=== PATIENT | male | born 1985 | race Caucasian/White ===

== ENCOUNTER 2017-02-03 13:47 | Emergency (ER) | payer OTHER ==
[~2017-02-03] VITALS: Ht 190.5 cm; Wt 105.0 kg
[2017-02-03 13:50] VITALS: BP 145/95; PULSE 69; RESP 16; TEMP 98; O2SAT 100
[2017-02-03] MEDS ORDERED: HYDROmorphone HCL PF 1 MG/ML VIAL IVS ONE (14:15)
[2017-02-03] MEDS ORDERED: SODIUM CHLORIDE 0.9% FLUSH 10 ML FLUSH IVF PRN (14:15)
[2017-02-03] MEDS ORDERED: SODIUM CHLOR 0.9% 1000 ML INJ 1,000 ML IV ONE (14:15)
[2017-02-03] MEDS ORDERED: ONDANSETRON HCL 4 MG/2 ML VIAL IVP ONE (14:15)
--- NOTE | 2017-02-03 14:15 | PD ---
HPI Chief Complaint: Flank/Kidney Pain Time Seen by Provider: 13:56 Travel History International Travel<30 days: No Contact w/Intl Traveler<30days: No Traveled to known affect area: No History of Present Illness HPI This patient complains of the abrupt onset of left flank pain. Duration 4 hours. Severity is severe. No injury. No fever. he has nausea. No alleviating factors. No radiation of pain. He is not having abdominal pain. PFSH Past Medical History Cancer: No Cardiovascular Problems: No Diminished Hearing: No Endocrine: No Genitourinary: No Immune Disorder: No Medical other: Yes (ENLARGED RIGHT GROIN LYMPHE NODES) Musculoskeletal: No Neurologic: No Psychiatric: No Reproductive: No Respiratory: No Tetanus Vaccination: < 5 Years Influenza Vaccination: Yes Past Surgical History Abdominal Surgery: Yes (APPI) Appendectomy: Yes ( A CHILD) Other Surgery: Yes Social History Alcohol Use: Yes (3 BEER PER WEEK) Tobacco Use: No Substance Use: No Allergies-Medications (Allergen,Severity, Reaction): Coded Allergies: Aspirin (Verified Allergy, Severe, OTHER, 02/03/17) Ceftin (Verified Allergy, Severe, Anaphylaxis, 02/03/17) Reported Meds & Prescriptions Reported Meds & Active Scripts Active No Active Prescriptions or Reported Medications Review of Systems General / Constitutional: No: Fever Eyes: No: Visual changes HENT: No: Headaches Cardiovascular: No: Chest Pain or Discomfort Respiratory: No: Shortness of Breath Gastrointestinal: Positive: Nausea, No: Abdominal Pain Genitourinary: Positive: Flank Pain, No: Dysuria Musculoskeletal: No: Pain Skin: No Rash Neurologic: No: Weakness Psychiatric: No: Depression Endocrine: No: Polydipsia Hematologic/Lymphatic: No: Easy Bruising Physical Exam Narrative GENERAL: Well-nourished, well-developed patient with left flank pain. SKIN: Focused skin assessment reveals no rash and nodules. Skin is Warm and dry. HEAD: Atraumatic. Normocephalic. EYES: Pupils equal and round. No scleral icterus. No injection or drainage. ENT: No nasal bleeding or discharge. Mucous membranes pink and moist. NECK: Trachea midline. No JVD. CARDIOVASCULAR: Regular rate and rhythm. No murmur appreciated. RESPIRATORY: No accessory muscle use. Clear to auscultation. Breath sounds equal bilaterally. GASTROINTESTINAL: Abdomen soft, non-tender, nondistended. Hepatic and splenic margins not palpable. Has palpable lymphadenopathy in the right groin shows chronic per patient over 3 weeks MUSCULOSKELETAL: No obvious deformities. No clubbing. No cyanosis. No edema. No midline tenderness NEUROLOGICAL: Awake and alert. No obvious cranial nerve deficits. Motor grossly within normal limits. Normal speech. PSYCHIATRIC: Appropriate mood and affect; insight and judgment normal. Data Data Last Documented VS Vital Signs Date Time Temp Pulse Resp B/P Pulse Ox O2 Delivery O2 Flow Rate FiO2 02/03/17 13:50 98.0 69 16 145/95 100 Orders Urinalysis - C+S If Indicated (02/03/17 13:49) Complete Blood Count With Diff (02/03/17 14:04) Basic Metabolic Panel (Bmp) (02/03/17 14:04) Iv Access Insert/Monitor (02/03/17 14:04) Ondansetron Inj (Zofran Inj) (02/03/17 14:15) Sodium Chloride 0.9% Flush (Ns Flush) (02/03/17 14:15) Hydromorphone Pf Inj (Dilaudid Pf Inj) (02/03/17 14:15) Sodium Chlor 0.9% 1000 Ml Inj (Ns 1000 M (02/03/17 14:15) Ct Abd/Pel W/O Iv Contrast (02/03/17 ) Labs Laboratory Tests Test 02/03/17 02/03/17 12:40 15:00 White Blood Count 10.6 TH/MM3 Red Blood Count 5.10 MIL/MM3 Hemoglobin 14.2 GM/DL Hematocrit 42.3 % Mean Corpuscular Volume 83.0 FL Mean Corpuscular Hemoglobin 27.8 PG Mean Corpuscular Hemoglobin 33.5 % Concent Red Cell Distribution Width 11.9 % Platelet Count 338 TH/MM3 Mean Platelet Volume 9.5 FL Neutrophils (%) (Auto) 74.0 % Lymphocytes (%) (Auto) 18.9 % Monocytes (%) (Auto) 5.9 % Eosinophils (%) (Auto) 0.4 % Basophils (%) (Auto) 0.8 % Neutrophils # (Auto) 7.9 TH/MM3 Lymphocytes # (Auto) 2.0 TH/MM3 Monocytes # (Auto) 0.6 TH/MM3 Eosinophils # (Auto) 0.0 TH/MM3 Basophils # (Auto) 0.1 TH/MM3 CBC Comment DIFF FINAL Differential Comment Sodium Level 142 MEQ/L Potassium Level 3.8 MEQ/L Chloride Level 104 MEQ/L Carbon Dioxide Level 29.1 MEQ/L Anion Gap 9 MEQ/L Blood Urea Nitrogen 10 MG/DL Creatinine 1.00 MG/DL Estimat Glomerular Filtration 87 ML/MIN Rate Random Glucose 109 MG/DL Calcium Level 9.7 MG/DL Urine Collection Type CLEAN CATCH Urine Color MIR Urine Turbidity MOD Urine pH 8.5 Urine Specific [place] 1.023 Urine Protein TRACE mg/dL Urine Glucose (UA) NEG mg/dL Urine Ketones 15 mg/dL Urine Occult Blood LARGE Urine Nitrite NEG Urine Bilirubin NEG Urine Leukocyte Esterase NEG Urine RBC INNUM /hpf Urine WBC /hpf Urine Squamous Epithelial 0-5 /hpf Cells Urine Amorphous Sediment MOD Microscopic Urinalysis Comment CULT NOT INDICATED Urine Collection Time 1500 MDM Medical Decision Making Medical Screen Exam Complete: Yes Emergency Medical Condition: Yes Medical Record Reviewed: Yes Differential Diagnosis Kidney stone, sciatica, pyelonephritis Narrative Course I have reviewed the patient's electronic medical record. IV placed CBC is normal Metabolic profile is normal Urinalysis shows blood without infection CT of abdomen and pelvis shows some mild left hydronephrosis but no visible stone. Incidental findings discussed with patient including gallstone and bone lesion on the femur I gave him IV Dilaudid and IV Zofran and 1 L normal saline IV bolus On recheck he is completely asymptomatic and feels fine. He says that he urinated right before the CT scan and believes he saw a stone pass Presentation would be consistent with a recently passed stone Recommending urology follow-up He feels fine and does not want any medications He should discuss his incidental findings with his PMD Diagnosis Primary Impression: Kidney stone on left side Additional Instructions: The patient was advised to follow up with their physician and return if they worsen. Follow up with urologist Med/Other Pt SpecificInfo: Other Scripts No Active Prescriptions or Reported Meds Disposition: 01 DISCHARGE HOME Condition: Stable Freedom Cortez MD Feb 03, 2017 14:15
[2017-02-03 14:30] LABS: AUTOMATED NEUTROPHIL # 7.9 TH/MM3 (1.8-7.7); BASOPHIL # 0.1 TH/MM3 (0-0.2); BASOPHIL % 0.8 % (0.0-2.0); EOSINOPHIL % 0.4 % (0.0-4.0); HEMATOCRIT 42.3 % (39.0-51.0); HEMO FLAGS DIFF FINAL; LYMPH % 18.9 % (9.0-44.0); MEAN CORPUSCULAR HEMOGLOBIN 27.8 PG (27.0-34.0); MEAN CORPUSCULAR HGB CONC 33.5 % (32.0-36.0); MONO % 5.9 % (0.0-8.0); PLATELET COUNT 338 TH/MM3 (150-450); RED CELL DISTRIBUTION WIDTH 11.9 % (11.6-17.2); WHITE BLOOD COUNT 10.6 TH/MM3 (4.0-11.0)
--- NOTE | 2017-02-03 14:44 | RADHPO ---
EXAM DATE/TIME: 02/03/2017 14:12 [facility] COMPARISON: No previous studies available for comparison. INDICATIONS : Left flank pain. Evaluate for renal stone. ORAL CONTRAST: No oral contrast ingested. RADIATION DOSE: 24.52 CTDIvol (mGy) MEDICAL HISTORY : None SURGICAL HISTORY : Appendectomy. ENCOUNTER: Initial ACUITY: 1 day PAIN SCALE: 5/10 LOCATION: Left flank TECHNIQUE: Volumetric scanning of the abdomen and pelvis was performed. Using automated exposure control and ad justment of the mA and/or kV according to patient size, radiation dose was kept as low as reasonably achievable to obtain optimal diagnostic quality images. FINDINGS: LOWER LUNGS: The visualized lower lungs are clear. LIVER: Homogeneous density without lesion. There is no dilation of the biliary tree. There is a 26 x 36 mm rim calcified gallstone of the gallbladder fundus. SPLEEN: Normal size without lesion. PANCREAS: Within normal limits. KIDNEYS: There is mild left hydronephrosis and diffuse mild hydroureter. No radiopaque stone seen. I also don' t see a calculus in the bladder. ADRENAL GLANDS: Within normal limits. VASCULAR: There is no aortic aneurysm. BOWEL/MESENTERY: The stomach, small bowel, and colon demonstrate no acute abnormality. There is no free intraperitone al air or fluid. ABDOMINAL WALL: Within normal limits. RETROPERITONEUM: There is no lymphadenopathy. BLADDER: No wall thickening or mass. REPRODUCTIVE: Within normal limits. INGUINAL: There is no lymphadenopathy or hernia. MUSCULOSKELETAL: 6 mm sclerosis seen of the right iliac bone. There is a 2.7 cm area of vague sclerosis within the med ullary space of the intertrochanteric region of the right femur, probably an enchondroma. 14 mm lucen cy is seen of the left pubic bone just lateral to the pubic symphysis and appears to partially involv e the left adductor origin. CONCLUSION: 1. Mild hydronephrosis and hydroureter on the left without a radiopaque stone. A radiolucent stone or a recently passed stone would be in the differential. 2. Large solitary gallstone. 3. Subcentimeter right iliac bone island, benign-appearing chondrous lesion of the proximal right fem ur and an indeterminant but most likely benign subcortical cyst of the left pubic bone underlying the adductor origin. Ranjeet Rhoades MD on February 03, 2017 at 14:35 Board Certified Radiologist. This report was verified electronically.
[2017-02-03 14:50] LABS: POTASSIUM 3.8 MEQ/L (3.5-5.1)
[2017-02-03 14:53] LABS: BICARBONATE 29.1 MEQ/L (21.0-32.0)
[2017-02-03 15:11] LABS: BLOOD, URINE LARGE (NEG); GLUCOSE,URINE NEG (NEG); KETONE, URINE 15 mg/dL (NEG); NITRITE,URINE NEG (NEG); PH, URINE 8.5 (5.0-8.5)
[2017-02-03 15:26] LABS: METHOD OF COLLECTION CLEAN CATCH; URINE COLOR AMBER (YELLW/STRAW)
[2017-02-03 15:27] LABS: RBC, URINE INNUM /hpf (0-3)
[2017-02-03 15:28] LABS: COMMENT (UR) CULT NOT INDICATED; COMMENT2 (UR) MUCOUS PRESENT; CULTURE IF INDICATED CULT NOT INDICATED; SQUAMOUS EPITHELIAL CELL URINE 0-5 /hpf (0-5)
[2017-02-03 16:11] VITALS: BP 130/69
== END 2017-02-03 16:13 | disposition home or self-care (01) ==
LOC: PHED 13:47
DX: N20.0 Calculus of kidney (principal)
CPT/HCPCS: 74176; 80048; 81001; 85025; 96361; 96374; 96375; 99285; J1170; J2405; J7030